=== PATIENT | male | born 1940 | race Caucasian/White ===

== ENCOUNTER → 2017-05-21 12:56 | Outpatient (CLI) | payer MEDICARE, SELFPAY ==
[2017-05-21 13:02] LABS: Microscopic, Urine URINE MICROSCOPIC (MICROSCOPIC)
[2017-05-21 13:25] LABS: Appearance,Urine CLEAR (Clear); Bilirubin,Urine Negative (Negative); Blood, Urine Negative (Negative); Color,Urine YELLOW (Yellow); Glucose,Urine (UA) Negative (Negative); Ketones,Urine Negative (Negative); Leukocyte Esterase,Urine Negative (Negative); Nitrate,Urine Negative (Negative); Protein,Urine Negative (Negative); Urobilinogen,Urine 0.2 EU/dl (0.2)
[2017-05-21 14:18] LABS: Albumin Level 3.2 gm/dL (3.4-5.0); Anion Gap 14.5 mEq/L (5-15); Blood Urea Nitrogen 33 mg/dL (7-18); Calcium 9.9 mg/dL (8.5-10.1); Carbon Dioxide 24 mmol/L (21.0-32.0); Chloride 103 mmol/L (98-107); Creatinine,Serum 2.22 mg/dL (0.70-1.30); Estimated Glomerular Filt Rate 29 ml/min (>60); GFR (African American) 35 ML/MIN (>60); Glucose 184 mg/dL (74-106); Sodium 137 mmol/L (136-145)
[2017-05-21 14:19] LABS: Potassium 4.5 mmoL/L (3.5-5.1)
[2017-05-21 14:40] LABS: Prostate Specific Ag Screen 0.1 ng/mL (0.0-4.0)
[2017-05-21 14:53] LABS: Bacteria,Urine Trace /lpf; WBC,Urine Occasional #/hpf (0-3)
== END ==
PROVIDERS: Internal Medicine Nephrology; Visit Provider Urology
DX: Z12.5 Encounter for screening for malignant neoplasm of prostate (principal); N40.0 Benign prostatic hyperplasia without lower urinary tract symptoms; N18.4 Chronic kidney disease, stage 4 (severe)
CPT/HCPCS: 36415; 80069; 81001; G0103

== ENCOUNTER → 2017-10-21 11:18 | Outpatient (CLI) | payer MEDICARE, SELFPAY ==
[2017-10-21 11:22] LABS: Microscopic, Urine URINE MICROSCOPIC (MICROSCOPIC)
[2017-10-21 11:38] LABS: Basophils % 0.4 % (0.1-2.0); Eosinophils # 0.3 K/mm3 (0.0-0.4); Hematocrit 36.3 % (42.0-52.0); Hemoglobin 11.5 g/dL (14.1-18.0); Lymphocytes # 1.8 K/mm3 (0.7-4.5); Lymphocytes % 26.9 K/mm3 (10-50); Mean Corpuscular HGB Conc 31.8 g/dL (31.8-35.4); Mean Corpuscular Hemoglobin 30.4 pg (27.0-31.2); Mean Corpuscular Volume 95.6 fl (80-94); Mean Platelet Volume 8.7 fl (7.4-10.4); Monocytes # 0.6 K/mm3 (0.1-1.0); Neutrophils # 4.1 K/mm3 (1.8-7.8); Neutrophils % 60.7 % (37.0-80.0); Platelet Count 162 K/mm3 (142-424); Red Blood Count 3.79 M/mm3 (4.60-6.20); Red Cell Distribution Width 16.5 % (11.5-17.5); White Blood Count 6.8 K/mm3 (4.8-10.8)
[2017-10-21 11:43] LABS: Appearance,Urine OTHER (Clear); Bilirubin,Urine Negative (Negative); Blood, Urine Negative (Negative); Color,Urine DK YELLOW (Yellow); Glucose,Urine (UA) Negative (Negative); Ketones,Urine Negative (Negative); Leukocyte Esterase,Urine Negative (Negative); Nitrate,Urine Negative (Negative); PH,Urine 5.5 (5.0-8.5); Protein,Urine 2+ (Negative); Specific Gravity, Urine >= 1.030 (1.005-1.030); Urobilinogen,Urine 0.2 EU/dl (0.2)
[2017-10-21 11:51] LABS: Bacteria,Urine 2+ /lpf; WBC,Urine Occasional #/hpf (0-3)
[2017-10-21 12:58] LABS: Albumin Level 3.7 gm/dL (3.4-5.0); Anion Gap 19.3 mEq/L (5-15); Blood Urea Nitrogen 45 mg/dL (7-18); Calcium 9.8 mg/dL (8.5-10.1); Carbon Dioxide 22 mmol/L (21.0-32.0); Chloride 104 mmol/L (98-107); Creatinine,Serum 2.88 mg/dL (0.70-1.30); Estimated Glomerular Filt Rate 21 ml/min (>60); GFR (African American) 26 ML/MIN (>60); Glucose 169 mg/dL (74-106); Phosphorous 4.3 mg/dL (2.4-4.9); Potassium 4.3 mmoL/L (3.5-5.1); Sodium 141 mmol/L (136-145)
[2017-10-22 15:04] LABS: Parathyroid Hormone Intact 103 pg/mL (15-65)
[2017-10-23 10:13] LABS: Vitamin D 25 Hydroxy 45.3 ng/mL (30.0-100.0)
== END ==
PROVIDERS: Visit Provider Internal Medicine Nephrology
DX: N18.9 Chronic kidney disease, unspecified (principal); N18.4 Chronic kidney disease, stage 4 (severe); D63.1 Anemia in chronic kidney disease; N25.81 Secondary hyperparathyroidism of renal origin; E55.9 Vitamin D deficiency, unspecified; R82.90 Unspecified abnormal findings in urine
CPT/HCPCS: 36415; 80069; 81001; 82652; 83970; 85025; 87086

== ENCOUNTER → 2017-11-24 07:57 | Outpatient (CLI) | payer MEDICARE, SELFPAY ==
--- NOTE | 2017-11-24 08:34 | CI_ITS ---
Cerebrovascular Exam Indications: Follow-up carotid 433.10. IMPRESSIONS 1. The bilateral vertebral arteries are patent with normal antegrade flow. 2. Study suggests 70-99% stenosis involving the right internal carotid artery. 3. Study suggests 20-49% stenosis involving the left internal carotid artery. Labs, prior tests, procedures, and surgery: Right endarterectomy (2001). Labs, prior tests, procedures, and surgery: Right endarterectomy (2001). Carotid duplex study. Complete study and Doppler flow study including spectral analysis, color and castro scale imaging. Height: Height: 170.2cm. Height: 67in. Weight: Weight: 83.9kg. Weight: 184.6lb. Body mass index: BMI: 29kg/m^2. Body surface area: BSA: 2.01m^2. Location: Vascular laboratory. Patient status: Outpatient. Tables: Arterial flow: + +--------+--------+ Location V sys V ed + +--------+--------+ Right CCA - proximal 62.5cm/s 12.6cm/s + +--------+--------+ Right CCA - distal 70.3cm/s 15.7cm/s + +--------+--------+ Right ECA 152cm/s -------- + +--------+--------+ Right ICA - proximal 237cm/s 70.2cm/s + +--------+--------+ Right ICA - mid 108cm/s 13.5cm/s + +--------+--------+ Right ICA - distal 84.2cm/s 10.1cm/s + +--------+--------+ Right vertebral 50.3cm/s -------- + +--------+--------+ Left CCA - proximal 69.5cm/s 11.4cm/s + +--------+--------+ Left CCA - distal 78.6cm/s 14.5cm/s + +--------+--------+ Left ECA 173cm/s -------- + +--------+--------+ Left ICA - proximal 66.2cm/s 16cm/s + +--------+--------+ Left ICA - mid 82.2cm/s 20.4cm/s + +--------+--------+ Left ICA - distal 102cm/s 34.2cm/s + +--------+--------+ Left vertebral 54.6cm/s -------- + +--------+--------+ Velocity ratios: + + + + + + Right, V sys Right, V ed Left, V sys Left, V ed + + + + + + Max ICA/dist CCA 3.37 4.47 1.3 2.36 + + + + + + (Report amended ) Electronically signed by: Jac Alcala [id number]
== END ==
PROVIDERS: Family Provider Family Medicine; PCP Family Medicine; Visit Provider Thoracic Surgery (Cardiothoracic Vascular Surgery)
DX: I65.23 Occlusion and stenosis of bilateral carotid arteries (principal)
CPT/HCPCS: 93880

== ENCOUNTER → 2018-04-14 12:13 | Outpatient (CLI) | payer MEDICARE, SELFPAY ==
--- NOTE | 2018-04-14 12:20 | CI_ITS ---
Cerebrovascular Exam Indications: 785.9 Bruit. 433.10 Occlusion/stenosis of carotid artery without cerebral infarction. IMPRESSIONS 1. The bilateral vertebral arteries are patent with normal antegrade flow. 2. Study suggests less than 20% stenosis involving the right internal carotid artery. 3. Study suggests 20-49%(UPPER END OF SCALE)stenosis involving the left internal carotid artery. Disease regression from the study of 24-Nov-2017 a stent has been placed in [place] following last study done 11/24/17 Labs, prior tests, procedures, and surgery: Right carotid stent. Labs, prior tests, procedures, and surgery: Right carotid stent. Carotid duplex study. Complete study and Doppler flow study including spectral analysis, color and castro scale imaging. Height: Height: 170.2cm. Height: 67in. Weight: Weight: 83.9kg. Weight: 184.6lb. Body mass index: BMI: 29kg/m^2. Body surface area: BSA: 2.01m^2. Location: Vascular laboratory. Patient status: Outpatient. Tables: Arterial flow: + +--------+--------+ Location V sys V ed + +--------+--------+ Right CCA - proximal 84.1cm/s 18.1cm/s + +--------+--------+ Right CCA - distal 73.9cm/s 15.7cm/s + +--------+--------+ Right ECA 184cm/s -------- + +--------+--------+ Right ICA - proximal 77.7cm/s 24.4cm/s + +--------+--------+ Right ICA - mid 80.3cm/s 24.4cm/s + +--------+--------+ Right ICA - distal 87.3cm/s 27.1cm/s + +--------+--------+ Right vertebral 45.4cm/s -------- + +--------+--------+ Left CCA - proximal 114cm/s 20.1cm/s + +--------+--------+ Left CCA - distal 112cm/s 24.4cm/s + +--------+--------+ Left ECA 117cm/s -------- + +--------+--------+ Left ICA - proximal 98.7cm/s 18.2cm/s + +--------+--------+ Left ICA - mid 94.3cm/s 22cm/s + +--------+--------+ Left ICA - distal 84.9cm/s 22cm/s + +--------+--------+ Left vertebral 42.7cm/s -------- + +--------+--------+ Velocity ratios: + + + + + + Right, V sys Right, V ed Left, V sys Left, V ed + + + + + + Max ICA/dist CCA 1.18 1.73 0.88 0.9 + + + + + + (Report amended ) Electronically signed by: Jac Alcala [id number]
== END ==
PROVIDERS: PCP Family Medicine; Visit Provider Physician Assistant
DX: I65.23 Occlusion and stenosis of bilateral carotid arteries (principal)
CPT/HCPCS: 93880

== ENCOUNTER → 2018-05-08 14:30 | Outpatient (CLI) | payer MEDICARE, SELFPAY ==
--- NOTE | 2018-05-08 14:34 | US_ITS ---
US kidney retroperitoneal comp HISTORY: ITS.REASON: renal insufficiency ORDERING PHYSICIAN: Wyatt Mina MD PATIENT AGE: 77 years Comparison: None FINDINGS: Right kidney is 9 x 5 x 6.4 cm. There is cortical thinning with irregularity of the renal cortex and a few small renal cysts. No hydronephrosis. The left kidney is 9 x 5 x 5 cm also showing cortical scarring. A 2.8 cm cyst is present along the upper pole. An 8 mm cyst present along the mid polar region. No hydronephrosis. There is some increased echogenicity of the renal cortex bilaterally. IMPRESSION: 1. No hydronephrosis. 2. Bilateral renal cortical scarring with slight increased echogenicity of the kidneys suggesting medical renal disease
== END ==
PROVIDERS: PCP Family Medicine; Visit Provider Urology
DX: N28.9 Disorder of kidney and ureter, unspecified (principal); R39.12 Poor urinary stream; R39.89 Other symptoms and signs involving the genitourinary system
CPT/HCPCS: 76770

== ENCOUNTER → 2018-06-17 12:09 | Outpatient (CLI) | payer MEDICARE, SELFPAY ==
[2018-06-17 12:13] LABS: Microscopic, Urine URINE MICROSCOPIC (MICROSCOPIC)
[2018-06-17 13:03] LABS: Basophils % 0.5 % (0.1-2.0); Eosinophils # 0.2 K/mm3 (0.0-0.4); Hematocrit 36.8 % (42.0-52.0); Hemoglobin 12.1 g/dL (14.1-18.0); Lymphocytes # 2.1 K/mm3 (0.7-4.5); Lymphocytes % 30.2 % (10-50); Mean Corpuscular Hemoglobin 31.6 pg (27.0-31.2); Mean Corpuscular Volume 95.8 fl (80-94); Mean Platelet Volume 7.9 fl (7.4-10.4); Monocytes # 0.5 K/mm3 (0.1-1.0); Monocytes % 7.7 % (1.7-9.3); Neutrophils % 58.6 % (37.0-80.0); Platelet Count 176 K/mm3 (142-424); Red Blood Count 3.85 M/mm3 (4.60-6.20); Red Cell Distribution Width 16.3 % (11.5-17.5); White Blood Count 6.9 K/mm3 (4.8-10.8)
[2018-06-17 13:23] LABS: Appearance,Urine CLEAR (Clear); Bilirubin,Urine Negative (Negative); Blood, Urine TRACE-L (Negative); Color,Urine YELLOW (Yellow); Glucose,Urine (UA) Negative (Negative); Ketones,Urine Negative (Negative); Leukocyte Esterase,Urine Negative (Negative); Nitrate,Urine Negative (Negative); Protein,Urine 2+ (Negative); Specific Gravity, Urine 1.015 (1.005-1.030); Urobilinogen,Urine 0.2 EU/dl (0.2)
[2018-06-17 13:31] LABS: Bacteria,Urine Trace /lpf; RBC,Urine Occasional #/hpf (0-3)
[2018-06-17 14:42] LABS: Albumin Level 3.8 gm/dL (3.4-5.0); Blood Urea Nitrogen 40 mg/dL (7-18); Calcium 10.1 mg/dL (8.5-10.1); Carbon Dioxide 29 mmol/L (21.0-32.0); Chloride 103 mmol/L (98-107); Creatinine,Serum 2.24 mg/dL (0.70-1.30); Estimated Glomerular Filt Rate 28 ml/min (>60); Ferritin 176 ng/mL (8-388); GFR (African American) 34 ML/MIN (>60); Glucose 139 mg/dL (74-106); Sodium 143 mmol/L (136-145)
[2018-06-18 08:30] LABS: Iron 51 ug/dL (38-169); UIBC 209 ug/dL (111-343)
[2018-06-18 10:03] LABS: Iron Saturation 20 % (15-55)
== END ==
DX: N18.9 Chronic kidney disease, unspecified (principal); N18.4 Chronic kidney disease, stage 4 (severe)
CPT/HCPCS: 36415; 80069; 81001; 82728; 83540; 83550; 85025

== ENCOUNTER → 2018-12-16 10:41 | Outpatient (CLI) | payer MEDICARE, SELFPAY ==
[2018-12-16 10:45] LABS: Microscopic, Urine URINE MICROSCOPIC (MICROSCOPIC)
[2018-12-16 11:08] LABS: Appearance,Urine CLEAR (Clear); Bilirubin,Urine Negative (Negative); Blood, Urine TRACE-I (Negative); Color,Urine YELLOW (Yellow); Glucose,Urine (UA) Negative (Negative); Ketones,Urine Negative (Negative); Leukocyte Esterase,Urine Negative (Negative); Nitrate,Urine Negative (Negative); PH,Urine 5.5 (5.0-8.5); Protein,Urine 1+ (Negative); Specific Gravity, Urine 1.015 (1.005-1.030); Urobilinogen,Urine 0.2 EU/dl (0.2)
[2018-12-16 11:22] LABS: Basophils % 0.8 % (0.1-2.0); Eosinophils # 0.3 K/mm3 (0.0-0.4); Eosinophils % 4.5 % (0.1-12.0); Hematocrit 39.7 % (42.0-52.0); Hemoglobin 11.7 g/dL (14.1-18.0); Lymphocytes # 1.8 K/mm3 (0.7-4.5); Lymphocytes % 30.1 % (10-50); Mean Corpuscular HGB Conc 29.6 g/dL (31.8-35.4); Mean Corpuscular Hemoglobin 30.4 pg (27.0-31.2); Mean Corpuscular Volume 102.6 fl (80-94); Monocytes # 0.5 K/mm3 (0.1-1.0); Monocytes % 8.7 % (1.7-9.3); Neutrophils # 3.3 K/mm3 (1.8-7.8); Neutrophils % 55.8 % (37.0-80.0); Platelet Count 173 K/mm3 (142-424); Red Blood Count 3.87 M/mm3 (4.60-6.20); Red Cell Distribution Width 17.1 % (11.5-17.5); White Blood Count 5.8 K/mm3 (4.8-10.8)
[2018-12-16 11:35] LABS: RBC,Urine Occasional #/hpf (0-3); Squamous Epithelial Cell,Urine Occasional #/hpf (0-5)
[2018-12-16 14:17] LABS: Albumin Level 3.8 gm/dL (3.4-5.0); Anion Gap 15.6 mEq/L (5-15); Blood Urea Nitrogen 47 mg/dL (7-18); Calcium 9.9 mg/dL (8.5-10.1); Carbon Dioxide 26 mmol/L (21.0-32.0); Chloride 106 mmol/L (98-107); Creatinine,Serum 2.44 mg/dL (0.70-1.30); Estimated Glomerular Filt Rate 26 ml/min (>60); GFR (African American) 31 ML/MIN (>60); Glucose 183 mg/dL (74-106); Phosphorous 3.2 mg/dL (2.4-4.9); Potassium 4.6 mmoL/L (3.5-5.1); Sodium 143 mmol/L (136-145)
[2018-12-17 14:28] LABS: Vitamin D 25 Hydroxy 55.9 ng/mL (30.0-100.0)
[2018-12-18 06:55] LABS: Parathyroid Hormone Intact 72 pg/mL (15-65)
== END ==
PROVIDERS: Visit Provider Hospitalist
DX: N18.4 Chronic kidney disease, stage 4 (severe) (principal); N25.81 Secondary hyperparathyroidism of renal origin
CPT/HCPCS: 36415; 80069; 81001; 82652; 83970; 85025